=== PATIENT | male | born 1990 | race Caucasian/White ===

== ENCOUNTER 2024-07-04 15:40 | Outpatient (CLI) | payer MEDICAID, SELFPAY ==
[2024-07-04 17:04] LABS: Chloride 105 mmol/L (98-107); Potassium 4.5 mmoL/L (3.5-5.1); Sodium 138 mmol/L (136-145)
[2024-07-04 17:07] LABS: Anion Gap 11.5 mEq/L (5-15); Blood Urea Nitrogen 15 mg/dl (9-20); Carbon Dioxide 26 mmol/L (22.0-30.0); Estimated Glomerular Filt Rate 98 ml/min (>60); GFR (African American) 119 ML/MIN (>60)
[2024-07-04 17:08] LABS: Calcium 8.9 mg/dl (8.4-10.2); Glucose 84 mg/dl (74-100)
[2024-07-04 17:26] LABS: T4 (Thyroxine) 10.3 ug/dl (5.53-11.0)
[2024-07-04 17:39] LABS: Thyroid Stimulating Hormone < 0.02 uIU/mL (0.465-4.68)
== END 2024-07-04 23:59 | disposition home or self-care (01) ==
LOC: LAB.DROPOF 07-05 06:45
PROVIDERS: PCP Family Medicine; Visit Provider Family Medicine
DX: E05.90 Thyrotoxicosis, unspecified without thyrotoxic crisis or storm (principal)
CPT/HCPCS: 80048; 84436; 84443

== ENCOUNTER 2025-02-18 10:45 | Outpatient (CLI) | payer MEDICAID, SELFPAY ==
[2025-02-18 17:24] LABS: Hematocrit 47.7 % (42.0-52.0); Hemoglobin 14.8 g/dL (14.1-18.0); Immature Granulocytes % 0.5 %; Mean Corpuscular HGB Conc 31.0 g/dL (31.8-35.4); Mean Corpuscular Hemoglobin 25.6 pg (27.0-31.2); Mean Corpuscular Volume 82.7 fl (80-94); Nucleated Red Blood Cells % 0 %; Platelet Count 202 K/mm3 (142-424); Red Blood Count 5.77 M/mm3 (4.60-6.20); Red Cell Distribution Width-SD 39.8 fL; White Blood Count 6.1 K/mm3 (4.8-10.8)
[2025-02-18 18:19] LABS: Alanine Aminotransferase 27 U/L (12-78); Albumin Level 4.5 g/dl (3.5-5.0); Albumin/Globulin Ratio 1.7 (1.1-1.8); Alkaline Phosphatase 90 U/L (38-126); Anion Gap 18.7 mEq/L (5-15); Aspartate Amino Transferase 30 U/L (17-59); Bilirubin,Total 1.0 mg/dl (0.2-1.3); Blood Urea Nitrogen 12 mg/dl (9-20); Calcium 8.6 mg/dl (8.4-10.2); Carbon Dioxide 23 mmol/L (22.0-30.0); Chloride 101 mmol/L (98-107); Cholesterol 119 mg/dl (140-200); Creatinine,Serum 0.70 mg/dl (0.66-1.25); Estimated Glomerular Filt Rate 131 ml/min (>60); GFR (African American) 158 ML/MIN (>60); Globulin 2.6 g/dL (1.3-3.2); HDL Cholesterol 38 mg/dl (40-60); Potassium 4.7 mmoL/L (3.5-5.1); Sodium 138 mmol/L (136-145); Total Protein,Serum 7.1 g/dl (6.3-8.2); Triglycerides 86 mg/dl (30-150)
[2025-02-18 18:25] LABS: Glucose 50 mg/dl (74-100)
[2025-02-18 18:36] LABS: T4 (Thyroxine) 12.5 ug/dl (5.53-11.0)
[2025-02-18 18:49] LABS: Thyroid Stimulating Hormone < 0.02 uIU/mL (0.465-4.68)
[2025-02-18 18:56] LABS: Hepatitis C Ab Qual. W/ RFX NEGATIVE (Negative)
[2025-02-18 21:34] LABS: Hemoglobin A1C 5.9 % (4.0-6.0)
--- OUTSIDE RECORDS SUMMARY | 2025-02-19 09:53 | XMS_ITS | Referral Summary ---
Author Organization [employer] ([place], [place], [place], [place]) Address [address] [place] [address] Care Team Providers Care Lacquer Pin Press Operator Name Role Phone [facility], Provider Not In The System Primary Care Provider Unavailable Jack Bundy MD Unavailable Marly Oden PA-C Unavailable [phone] Allergies No known active allergies Medications digoxin (LANOXIN) 125 mcg (0.125 mg) tabletIndications :Atrial fibrillation with RVR (HCC) Take 1 tablet (125 mcg total) by mouth daily for 360 days. 90 tablet 3 4 06/08/20 Active furosemide (LASIX) 20 MG tablet Take 1 tablet (20 mg total) by mouth daily for 360 days. 90 tablet 3 4 06/08/20 Active metoprolol succinate (TOPROL-XL) 50 MG 24 hr tablet Take 1 tablet (50 mg total) by mouth 2 (two) times daily for 360 days. 180 tablet 3 4 06/08/20 25 Active potassium chloride (MICRO-K) 10 mEq CR capsule Take 1 capsule (10 mEq total) by mouth daily for 360 days Take with Lasix. 90 capsule 3 4 06/08/20 Active rivaroxaban (XARELTO) 20 mg tablet Take 1 tablet (20 mg total) by mouth daily with dinner. 90 tablet 3 4 Active sacubitriL-valsar trivedi (ENTRESTO) 24-26 mg tablet Take 1 tablet by mouth 2 (two) times daily. 180 tablet 3 Active empagliflozin (JARDIANCE) 10 mg tablet Take 1 tablet (10 mg total) by mouth daily. 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 06/13/2024 HFrEF (heart failure with reduced ejection fract ion) 06/13/2024 Atrial fibrillation with RVR 05/21/2024 Social History Tobacco Use Types Packs/Day Years Used Date Smoking Tobacco: Never Smokeless Tobacco: Current Chew Tobacco Cessation:Ready to Q uit: Yes; Counseling Given: Yes Alcohol Use Standard Drinks/Week Comments Never 0 (1 standard drink = 0.6 oz pur e alcohol) Family and Community Support Answer Anil e Recorded Help with Day to Day Activities Not on file 05/21/2024 Feeling Lonely or Isolated Not on file 05/21 Educational Attainment Answer Date Hemanth rded Speak language other than Maldivian at home Not on file 05/21/2024 Want help with school or training Not on file 05/21/2024 Substance Use Answer Date Recorded Used prescription meds for non-medical reasons N ot on file 05/21/2024 Used illegal drugs past 12 months Not on file 05/21/2024 Sex and Gender Information Value Date Recorded Sex Assigned at Not on file Legal Sex Male 4:23 PM CDT Gender Identity Not on file Sexual Orientation Not on file Last Filed Vital Signs Vital Sign Reading Time Taken Comments Blood Pressure 120/80 06/13/2024 1:05 PM EDT Pulse 53 06/13/2024 1:05 PM EDT Temperature 36.9 C (98.4 F) 05/25/2024 10:54 AM EDT Respiratory Rate 18 05/25/2024 12:4 9 PM EDT Oxygen Saturation 97% 06/13/2024 1:05 PM EDT Inhaled Oxygen Concentration - - Weight 125.6 kg (276 lb 12.8 oz) 06/13/2024 1:05 PM EDT Height 177.8 cm (5' 10 ) 06/13/2024 1:05 PM EDT Body Mass Index 39.72 06/13/2024 1:05 PM EDT Plan of Treatment Not on file Procedures Procedure Name Priority Date/Time Associated Diagnosis Comments LIPID PANEL Routine 05/22/2024 4:11 AM EDT from Last 3 Months or Most Recently Relevant to Health Maintenance Results * (ABNORMAL) Lipid panel (05/22/2024 4:11 AM EDT) Triglycerides 70 0 - 249 mg/dL 05/22/2024 5:21 AM EDT [facility] Cholesterol 80 0 - 199 mg/dL 05/22/2024 5:21 AM EDT [facility] Comment: 200 to 239 mg/dL = Moderate (borderline) >239 mg/dL = High HDL Cholesterol 25(L) >=40 mg/dL 5:21 AM EDT [facility] Comment: >=60 mg/dL = Desirable <40 mg/dL = Increased Risk All other components are listed individually or are calculations VLDL Cholesterol 14 5 - 40 mg/dL 05/22/2024 5:21 AM EDT [facility] Cholesterol/HDL ratio 3.2 0.0 - 3.2 05/22/2024 5:21 AM EDT [facility] LDl/HDL Ratio 2 0 - 4 05/22/2024 5:21 AM EDT [facility] RISK COMP 3 05/22/2024 5:21 AM EDT [facility] LDL Cholesterol, Calculated 41 0 - 99 mg/dL 05/22/2024 5:21 AM EDT [facility] Blood Venipuncture / Unknown 05/22/2024 4:11 AM EDT 05/22/2024 4:26 AM EDT us Kasey Lama MD LAB BLOOD ORDERABLES Final Resu lt [facility] [address] [place] [address], [facility] [phone] from Last 3 Months or Most Recently Relevant to Health Maintenance [facility] Advance Directives For more information, please contact: [phone] * Full Code (Latest Code Status on File) Date Activated Date Inactivated Comments 05/21/2024 7:47 PM 05/25/2024 3:14 PM Care Teams Lacquer Pin Press Operator Relationship Specialty Start Date End Date [facility], Provider Not In The System, [place] [address] PCP - General 06/07/24 Jack Bundy MD [address] [facility] [address] [place] [address] Consulting Physician Electrophysiology 06/27/24 Marly Oden PA-C [address] [facility], [facility] [address] [place] [address] Hospitalist Cardiology 06/27/24
--- OUTSIDE RECORDS SUMMARY | 2025-02-19 09:53 | XMS_ITS | Patient Health Record ---
Author Organization [facility] [place] Address [address] [place] [address] Care Team Providers Care Cut And Print Machine Operator Name Role Phone NIDHI SAMSON Primary Care Provider Reason For Referral No Information Plan Of Treatment No Information Insurance Providers Payer Name Payer Address Payer Phone Subscriber Number Group Number Insured Name Patient Relationship to Insured Coverage Start Date Coverage End Date Medicaid of [place] [address] [place] [address] [phone] [id number] Aman Morton Self - patient is the insured [employer] [address] [place] [address] [id number] Aman Morton Self - patient is the insured
--- OUTSIDE RECORDS SUMMARY | 2025-02-19 09:53 | XMS_ITS | Clinical Summary ---
Author Organization [employer] ([place], [place], [place], [place]) Address [address] [place] [address] Care Team Providers Care Safety Professional Name Role Phone [facility], Provider Not In The System Primary Care Provider Unavailable Jack Bundy MD Unavailable Marly Oden PA-C Unavailable [phone] Allergies No known active allergies Medications [...] 2 (two) times daily. 180 tablet 3 4 Active empagliflozin (JARDIANCE) 10 mg tablet Take [...] Date Hemanth rded Speak language other than Sudanese at home Not on file 05/21/2024 Want [...] 06/13/2024 1:05 PM EDT Plan of Treatment Health Maintenance Due Date Last Done Comments Depression Screening (12+) 2004 Tobacco Cessation Counseling and Screening (12+) 2004 HIV Screening 2007 Hepatitis C Screening 2010 DTAP/TDAP/TD VACCINES (3 - T d or Tdap) 11/03/2014 11/03/2004, 09/13/1997 COVID-19 VACCINE (2023-2 5 season) 2024 Influenza Vaccine (#1) 2025 Lipid Panel 05/22/2027 05/22/2024 Pneumococcal Vaccine: 0-49 Years Aged Out No longer eligible b ased on patient's age to complete this topic Procedures Procedure Name Priority Date/Time Associated Diagnosis Comments LIPID PANEL Routine 05/22/2024 4:11 AM EDT from Last 3 Months or Most Recently Relevant to Health Maintenance Results * (ABNORMAL) Lipid panel (05/22/2024 4:11 AM EDT) Triglycerides 70 0 - 249 mg/dL 05/22/2024 5:21 AM [facility] Cholesterol 80 0 - 199 mg/dL 05/22/2024 5:21 AM T [facility] Comment: 200 to 239 mg/dL = Moderate (borderline) >239 mg/dL = High HDL Cholesterol 25(L) >=40 mg/dL 5:21 AM T [facility] Comment: >=60 mg/dL = Desirable <40 mg/dL = Increased Risk All other components are listed individually or are calculations VLDL Cholesterol 14 5 - 40 mg/dL 05/22/2024 5:21 AM [facility] Cholesterol/HDL ratio 3.2 0.0 - 3.2 05/22/2024 5:21 AM [facility] LDl/HDL Ratio 2 0 - 4 05/22/2024 5:21 AM [facility] RISK COMP 3 05/22/2024 5:21 AM [facility] LDL Cholesterol, Calculated 41 0 - 99 mg/dL 05/22/2024 5:21 AM [facility] Blood Venipuncture / Unknown 05/22/2024 4:11 AM EDT 05/22/2024 4:26 AM EDT us Kasey Lama MD LAB BLOOD ORDERABLES Final Resu lt [facility] [address] [place] [address], [facility] [phone] from Last 3 Months or Most Recently Relevant to Health Maintenance Insurance [facility] Advance Directives For more information, please contact: [phone] * Full Code (Latest Code Status on File) Date Activated Date Inactivated Comments 05/21/2024 7:47 PM 05/25/2024 3:14 PM Care Teams Safety Professional Relationship Specialty Start Date End Date [facility], Provider Not In The System, [place] [address] PCP - General 06/07/24 Jack Bundy MD [address] [facility] [address] [place] [address] Consulting Physician Electrophysiology 06/27/24 Marly Oden PA-C [address] [facility] [address] [place] [id number] Hospitalist Cardiology 06/27/24
[2025-02-20 10:12] LABS: Hepatitis B Surface Antigen Negative (Negative)
== END 2025-02-18 23:59 | disposition home or self-care (01) ==
LOC: LAB.DROPOF 02-19 09:51
PROVIDERS: PCP Family Medicine; Visit Provider Family Medicine
DX: E05.90 Thyrotoxicosis, unspecified without thyrotoxic crisis or storm (principal); Z11.4 Encounter for screening for human immunodeficiency virus [HIV]; Z11.59 Encounter for screening for other viral diseases
CPT/HCPCS: 80053; 80061; 80074; 83036; 84436; 84443; 85025; 87340; 87389